=== PATIENT | male | born 1955 | race Caucasian/White ===

== ENCOUNTER → 2016-02-24 | Outpatient (CLI) | payer OTHER, MEDICARE ==
--- NOTE | 2016-02-24 12:06 | DX ---
Lateral chest x-ray 1022 hours. History: Previous open-heart surgery with increasing tenderness sternum area. (Z [id number]) Findings: Comparison to November 24, 2015. Inferior sternotomy wire appears to be intact. The superior sternotomy wires are not well delineated on the lateral view. No sternal fracture is appreciated. There is stable positioning of fine substern al/pericardial wires. Cardiac valve replacement is in stable position. There are some clips about the superior mediastinum. There are no pleural effusions identified or definite consolidation. Epidural spinal stimulator leads are noted projected over the lower thoracic spine region. Thoracolumbar spina l fusion is once again noted with pedicle screws and paraspinal rods. Cardiac rhythm recording device is projected over the anterior chest wall. Impression: No new abnormality seen on single lateral view of the chest as detailed above.
== END ==
LOC: FIMAGING 10:23
PROVIDERS: ATTEND Thoracic Surgery (Cardiothoracic Vascular Surgery)
DX: R07.81 Pleurodynia (principal); Z98.890 Other specified postprocedural states

== ENCOUNTER → 2016-04-23 | Outpatient (CLI) | payer OTHER, MEDICARE ==
[~2016-04-23] MED LIST: IOPAMIDOL (ISOVUE-M 300) 15 ML VIAL IV ONE; LIDOCAINE 1% 30 ML SDV ONE; NA BICARBONATE 50 MEQ/50 ML VIAL ONE
== END ==
LOC: FIMAGING 08:19
PROVIDERS: ATTEND Physician Assistant Surgical
PROC: 3E0R3KZ Introduction of Other Diagnostic Substance into Spinal Canal, Percutaneous Approach (ICD-10-PCS; principal; 2016-04-23)
DX: M51.35 Other intervertebral disc degeneration, thoracolumbar region (principal); M51.84 Other intervertebral disc disorders, thoracic region; M48.02 Spinal stenosis, cervical region; M50.81 Other cervical disc disorders, high cervical region; M50.322 Other cervical disc degeneration at C5-C6 level; Z95.818 Presence of other cardiac implants and grafts; Z95.4 Presence of other heart-valve replacement
CPT/HCPCS: Q9967

== ENCOUNTER 2016-06-05 05:58 | Day surgery (SDC) | payer OTHER, MEDICARE ==
[2016-06-05] MEDS ORDERED: LIDOCAINE 1% 5 ML SDV ONE (06:12)
[2016-06-05] MEDS ORDERED: SODIUM BICARBONATE 10 MEQ/10 ML SYR IVP ONE (07:01)
[2016-06-05] MEDS ORDERED: LIDOCAINE 1% 30 ML SDV ONE (07:01)
[2016-06-05] MEDS ORDERED: BUPIVACAINE 0.5% 30 ML SDV ONE (07:02)
[2016-06-05] MEDS ORDERED: LR 1,000 ML IV ONE (07:10)
[2016-06-05] MEDS ORDERED: LIDOCAINE 1% 5 ML SDV ID PRN (07:10)
[2016-06-05] MEDS ORDERED: fentaNYL 100 MCG/2 ML INJ ONE (07:19)
[2016-06-05] MEDS ORDERED: PROPOFOL 200 MG/20 ML VIAL ONE ×2 (07:22→07:23)
[2016-06-05] MEDS ORDERED: MIDAZOLAM 2 MG/2 ML VIAL ONE (07:22)
[2016-06-05] MEDS ORDERED: KETAMINE 100 MG/10 ML SYR IVP ONE (07:27)
--- NOTE | 2016-06-05 10:19 | GOP ---
[f rep st] OPERATIVE REPORT DATE OF OPERATION: 06/05/2016 SURGEON: Get Lund MD ANESTHESIA: Monitored anesthetic care. PREOPERATIVE DIAGNOSIS: Chronic pain. POSTOPERATIVE DIAGNOSIS: Chronic pain. PROCEDURE PERFORMED: Spinal stimulator generator change. FINDINGS: New generator was tested and found to be fully functional. ESTIMATED BLOOD LOSS: 20 cc. INDICATIONS: 61-year-old male with a history of spinal stimulator placement. The patient's battery has . Risks and benefits of the procedure were discussed the patient, questions were answer ed. Wished to proceed. DESCRIPTION OF PROCEDURE: Patient in the prone position. After the induction of adequate IV sedati on, the patient was prepped and draped in standard surgical fashion. 0.5% Marcaine and 1% lidocaine were injected throughout the old left flank incision for local anesthesia. Incision was opened wit h a #15 blade and carried down through the subcutaneous tissues with Bovie cautery and blunt dissect ion. The capsule was opened sharply. The generator was extracted without difficulty and the leads removed. The leads were inspected and found to be intact. A new battery was placed and tested. Jacoby wegutierrez, after multiple initial tests, the battery was found to be faulty. The leads themselves were tested by the medical field representative and found to be working. A second battery/generator was opened and the leads were attached. Testing found this new generator to be fully functional. The generator was r eplaced with the leads coiled behind it. The capsule was then sutured closed using 3-0 Vicryl in in terrupted fashion. Subcutaneous tissue was approximated similarly. The skin was closed with 4-0 Mo nocryl and a subcuticular stitch. The wound was dressed with Dermabond and the patient was returned to the supine position and taken to PACU in stable condition. COMPLICATIONS: None. DRAINS: None. /[id number]/MODL
== END 2016-06-05 09:55 | disposition home or self-care (01) ==
LOC: FSGY 05:58
PROVIDERS: ATTEND Surgery
DX: G47.33 Obstructive sleep apnea (adult) (pediatric) (principal); Z45.42 Encounter for adjustment and management of neurostimulator; G89.29 Other chronic pain; K21.9 Gastro-esophageal reflux disease without esophagitis; I10 Essential (primary) hypertension; E03.9 Hypothyroidism, unspecified; I48.91 Unspecified atrial fibrillation; Z79.01 Long term (current) use of anticoagulants; I50.32 Chronic diastolic (congestive) heart failure
CPT/HCPCS: C1787; C1820; J0690; J2250; J2704; J3010

== ENCOUNTER → 2016-12-21 | Outpatient (CLI) | payer OTHER, MEDICARE | LOC: BHFA 13:30 | PROVIDERS: ATTEND Internal Medicine Cardiovascular Disease | DX: R00.2 Palpitations (principal) ==

== ENCOUNTER 2017-04-29 11:36 | Emergency (ER) | payer OTHER, MEDICARE ==
[2017-04-29 11:47] VITALS: O2SAT 96
[2017-04-29] MEDS ORDERED: TRANEXAMIC ACID 1,000 MG/10 ML VIAL TP ONE (12:14)
--- NOTE | 2017-04-29 12:33 | EDPHY ---
H & P Smoking Status: Never smoked Time Seen by Provider: 04/29/17 12:13 HPI/ROS: CHIEF COMPLAINT: Epistaxis since last evening HISTORY OF PRESENT ILLNESS: 62-year-old male with no anticoagulant use beyond daily aspirin complaining of spontaneous epistaxis from the right side since last evening. Uses nightly home CPAP for sleep apnea. No digital trauma. No dizziness. No lightheadedness. No chest pain. No abdominal pain. No back or flank pain. No change in urinary habits. PHYSICAL EXAM (Prior to examination, patient consented to physical exam, hands were washed and my usual and customary physical exam procedures followed) 1) GENERAL: Well-developed, well-nourished, alert and oriented. Appears to be in no acute distress. 2) HEAD: Normocephalic 3) HEENT: sclera anicteric . Nasal tampon in place, taken out revealing an area of active bleeding anterior nostril on the right side. 4) LUNGS: Breathing comfortably. DIFFERENTIAL DIAGNOSIS: In no particular include but limited to anterior epistaxis, posterior epistaxis, digital trauma (Rahul Franks Diamante) Constitutional: Initial Vital Signs Heart Rate 84 04/29/17 11:40 Respiratory Rate 18 04/29/17 11:40 Blood Pressure 181/94 H 04/29/17 11:40 O2 Sat (%) 96 04/29/17 11:40 O2 Delivery Mode Room Air Allergies/Adverse Reactions: No Known Allergies Allergy (Verified 04/29/17 11:40) Home Medications: Medication Instructions Recorded Carisoprodol [Soma (*)] 350 mg PO TID PRN 11/29/11 Fluoxetine HCl [Prozac 40 mg] 40 mg PO DAILY 11/29/11 Levothyroxine [Synthroid 75 mcg 75 mcg PO DAILY06 11/29/11 (*)] Pregabalin [LYRICA] 300 mg PO BID 11/29/11 Aspirin EC [Aspirin EC 81 mg (*)] 81 mg PO HS 08/25/14 Furosemide [Lasix 40 MG (*)] 40 mg PO BID 10/31/15 fentaNYL [Fentanyl] 100 mcg TP Q3D 10/31/15 HYDROmorphone HCL [Dilaudid 4 mg 4 mg PO Q4HRS PRN #40 tab 11/13/15 (*)] Valsartan [Diovan] 80 mg PO DAILY 12/09/15 Metoprolol Tartrate [Lopressor 25 50 mg PO BID 04/20/16 mg (*)] MDM/Departure - MDM Medications Given: Discontinued Medications Tranexamic Acid (Cyklokapron) 500 mg TP EDNOW ONE Stop: 04/29/17 12:15 Last Admin: 04/29/17 12:22 Dose: 500 mg ED Course/Re-evaluation: 12:25 p.m.: Nasal pledgets soaked in TXA placed by myself. Will observe patient. 12:56 p.m.: TXA soaked pledget removed, patient is hemostatic. 1:20 p.m.: Re-evaluation, he remains hemostatic. Plan will be discharge with usual and customary epistaxis precautions and instructions. Care of patient under supervision of secondary supervising physician Dr Le . (Rahul Franks) I did not see this patient while he was in the emergency department. However his care was discussed with the PA while the patient was in the department. I agree with treatment plan and management (Baljit Le) - Depart Disposition: Home, Routine, Self-Care Clinical Impression: Anterior epistaxis Condition: Good Instructions: Nosebleed (ED) Additional Instructions: If you develop further episodes of nosebleed, place direct pressure for 20 minutes. If the bleeding continues, seek medical attention. Referrals: Jael Bess MD [Medical Doctor] - 1-2 days without fail (Dr. Bess is an ear nose and throat doctor)
[2017-04-29 13:37] VITALS: BP 152/73; PULSE 76; RESP 15; TEMP 97.5
== END 2017-04-29 13:47 | disposition home or self-care (01) ==
DX: R04.0 Epistaxis (principal); Z79.82 Long term (current) use of aspirin

== ENCOUNTER → 2017-12-11 | Outpatient (CLI) | payer OTHER, MEDICARE | LOC: BHFA 16:15 | PROVIDERS: ATTEND Internal Medicine Cardiovascular Disease | DX: Z95.2 Presence of prosthetic heart valve (principal) ==

== ENCOUNTER → 2017-12-26 | Outpatient (CLI) | payer OTHER, MEDICARE | LOC: BHFA 13:00 | PROVIDERS: ATTEND Internal Medicine Cardiovascular Disease | DX: I10 Essential (primary) hypertension (principal); Z95.2 Presence of prosthetic heart valve ==

== ENCOUNTER 2018-03-01 11:01 | Inpatient (IN) | payer OTHER, MEDICARE ==
--- NOTE | 2018-03-01 11:28 | EDPHY ---
H & P Stated Complaint: SOB cough upper chest pain x 10 days--sent from pcp Time Seen by Provider: 03/01/18 11:20 - Personal History Tetanus Vaccine Date: UNKNOWN - Medical/Surgical History Hx Asthma: No Hx Chronic Respiratory Disease: No Hx Diabetes: No Hx Cardiac Disease: Yes Hx Renal Disease: No Hx Cirrhosis: No Hx Alcoholism: No Hx HIV/AIDS: No Hx Splenectomy or Spleen Trauma: No Other PMH: HTN, chronic back pain, back fusions x 6, bilateral carpal tunnel repair, umbilical hernia repair., arthritis, LLUVIA/CSA with home O2 and cpap machine, atrial fib, hypothyroidism, Gerd, cellulitis of left arm - Social History Smoking Status: Never smoked Constitutional: Initial Vital Signs Temperature (C) 36.5 C 03/01/18 11:07 Heart Rate 76 03/01/18 11:07 Respiratory Rate 18 03/01/18 11:07 Blood Pressure 120/54 L 03/01/18 11:07 O2 Sat (%) 89 L 03/01/18 11:07 O2 Delivery Mode Room Air Allergies/Adverse Reactions: No Known Allergies Allergy (Verified 04/29/17 11:40) Home Medications: Medication Instructions Recorded Fluoxetine HCl [Prozac 40 mg] 40 mg PO DAILY 11/29/11 Levothyroxine [Synthroid 75 mcg 75 mcg PO DAILY06 11/29/11 (*)] Pregabalin [LYRICA] 300 mg PO BID 11/29/11 Aspirin EC [Aspirin EC 81 mg (*)] 81 mg PO DAILY 08/25/14 Furosemide [Lasix 40 MG (*)] 80 mg PO BIDDIUR MDD 80-160 DAILY 10/31/15 Metoprolol Tartrate [Lopressor 25 50 mg PO BID 04/20/16 mg (*)] Acet/Caffeine/Buta Fioricet 03/01/18 [Fioricet (*)] Irbesartan [Avapro 150 mg (*)] 300 mg PO DAILY 03/01/18 Linaclotide [Linzess] 1 cap PO DAILY 03/01/18 Potassium Chloride [Potassium 20 meq PO BIDDIUR 03/01/18 Chloride] Medical Decision Making - Diagnostics Imaging: I viewed and interpreted images myself ED Course/Re-evaluation: CHIEF COMPLAINT: Cough, malaise HISTORY OF PRESENT ILLNESS: The patient is a 62 y/o male with a history of atrial fibrillation, hypertension, and chronic pain complaining of persistent cough and malaise unimproved over the last few weeks. His cough is occasionally productive and he's had associated chills and night sweats. He feels extremely fatigued and describes feeling like he is "running low." He went to his PCP's office today for evaluation. His PCP described the patient as diaphoretic and ill-appearing and sent him to the ED with concern for pneumonia. He did receive a flu vaccination this season. He denies vomiting, abdominal pain, diarrhea, urinary symptoms. REVIEW OF SYSTEMS: A comprehensive 10 system review of systems is otherwise negative aside from elements mentioned in the history of present illness and medical decision making. PHYSICAL EXAM: HR, BP, O2 Sat, RR. Temp noted. SpO2 89% on room air. General Appearance: Alert, well hydrated, appropriate, diaphoretic and ill- appearing. Head: Atraumatic without scalp tenderness or obvious injury Eyes: Pupils equal, round, reactive to light and accommodation, EOMI, no trauma , no injection. Ears: Clear bilaterally, no perforation, normal landmarks Nose: Atraumatic, no rhinorrhea, clear. Throat: There is no erythema or exudates, no lesions, normal tonsils, mucus membranes moist. Neck: Supple, non-tender, no lymphadenopathy. Respiratory: No retractions, no distress, no wheezes, and no accessory muscle use. Lungs have rhonchi at the bases to auscultation bilaterally. Cardiovascular: Regular rate and rhythm, no murmurs, rubs, or gallops. Good capillary refill all extremities. Gastrointestinal: Abdomen is soft, non-tender, non-distended, no masses, no rebound, no guarding, no peritoneal signs. Obese abdomen. Musculoskeletal: Normal active ROM of all extremities, atraumatic. Neurological: Alert, appropriate, and interactive. The patient has non-focal cranial nerves, motor, sensory, and cerebellar exam. Skin: No rashes, good turgor, no nodules on palpation. PAST MEDICAL HISTORY: Hypertension, chronic back pain, arthritis, obstructive sleep apnea with home O2 and CPAP, atrial fib, hypothyroidism, GERD, cellulitis of left arm PAST SURGICAL HISTORY: MAZE procedure, back fusions x6, bilateral carpal tunnel repair, umbilical hernia repair. SOCIAL HISTORY: Lives in [place]. Retired. PCP: Dr. Canales. DIAGNOSTICS/PROCEDURES/CRITICAL CARE TIME: Chest x-ray: bibasilar pneumonia DIFFERENTIAL DIAGNOSIS: The differential diagnosis for the patient's shortness of breath and hypoxemia included but was not limited to pneumonia, myocardial infarction, acute mountain sickness, high altitude pulmonary edema, congestive heart failure, and pulmonary embolus. MEDICAL DECISION MAKIN62 y/o male presents with a couple week history of progressive cough and malaise. He is ill-appearing and hypoxemic on room air at 89%. He has rhonchi bilaterally at the bases on auscultation. Presentation is concerning for pneumonia, but he does not appear septic and is normotensive and not tachycardic. Plan for IV, labs, chest x-ray. WBC elevated, but he does not meet sepsis criteria. He has renal insufficiency with a creatinine of 1.8, which is higher than prior labs in our records. Chest x-ray shows bibasilar pneumonia. 1gm IV ceftriaxone and 500mg IV azithromycin ordered. Reassessed patient and discussed findings. Plan for admission. Spoke with hospitalist service. Dr. Manriquez accepts admission. - Data Points Laboratory Results: Laboratory Results 03/01/18 11:20 03/01/18 11:20 03/01/18 03/01/18 03/01/18 11:30 11:22 11:20 WBC RBC Hgb Hct MCV MCH MCHC RDW Plt Count MPV Neut % (Auto) Lymph % (Auto) [place] % (Auto) Eos % (Auto) Baso % (Auto) Nucleat RBC Rel Count Absolute Neuts (auto) Absolute Lymphs (auto) Absolute Monos (auto) Absolute Eos (auto) Absolute Basos (auto) Absolute Nucleated RBC Immature Gran % Immature Gran # Platelet Estimate PT INR APTT VBG Lactic Acid 2.4 mmol/L H mmol/L (0.7-2.1) Sodium 139 mEq/L mEq/L (135-145) Potassium 3.5 mEq/L mEq/L (3.5-5.2) Chloride 101 mEq/L mEq/L (97-110) Carbon Dioxide 24 mEq/l mEq/l (22-31) Anion Gap 14 mEq/L mEq/L (6-14) BUN 25 mg/dL H mg/dL (7-23) Creatinine 1.8 mg/dL H mg/dL (0.7-1.3) Estimated GFR 38 Glucose 128 mg/dL H mg/dL (70-100) Calcium 9.2 mg/dL mg/dL (8.5-10.4) Total Bilirubin 1.5 mg/dL H mg/dL (0.1-1.4) POC Troponin I 0.01 ng/mL ng/mL (0.00-0.08) 03/01/18 03/01/18 11:20 11:20 WBC 13.78 10^3/uL H 10^3/uL (3.80-9.50) RBC 5.36 10^6/uL 10^6/uL (4.40-6.38) Hgb 16.3 g/dL g/dL (13.7-17.5) Hct 49.4 % % (40.0-51.0) MCV 92.2 fL fL (81.5-99.8) MCH 30.4 pg pg (27.9-34.1) MCHC 33.0 g/dL g/dL (32.4-36.7) RDW 14.3 % % (11.5-15.2) Plt Count 202 10^3/uL 10^3/uL (150-400) MPV 11.3 fL fL (8.7-11.7) Neut % (Auto) Pending Lymph % (Auto) Pending [place] % (Auto) Pending Eos % (Auto) Pending Baso % (Auto) Pending Nucleat RBC Rel Count Pending Absolute Neuts (auto) Pending Absolute Lymphs (auto) Pending Absolute Monos (auto) Pending Absolute Eos (auto) Pending Absolute Basos (auto) Pending Absolute Nucleated RBC Pending Immature Gran % Pending Immature Gran # Pending Platelet Estimate Pending PT 16.7 SEC H SEC (12.0-15.0) INR 1.33 H (0.83-1.16) APTT 28.6 SEC SEC (23.0-38.0) VBG Lactic Acid Sodium Potassium Chloride Carbon Dioxide Anion Gap BUN Creatinine Estimated GFR Glucose Calcium Total Bilirubin POC Troponin I Point of Care Test Results: Chemistry 03/01/18 11:22 POC Troponin I 0.01 ng/mL ng/mL (0.00-0.08) Departure - Departure Disposition: [facility] Clinical Impression: Hypoxemia, Renal insufficiency Pneumonia Qualifiers: Pneumonia type: due to unspecified organism Laterality: bilateral Lung location : lower lobe of lung Qualified Code(s): J18.1 - Lobar pneumonia, unspecified organism Condition: Fair Referrals: Frederick Canales MD [Primary Care Provider] - As per Instructions Report Scribed for: Magdiel Mata Report Scribed by: Dee Sotelo Date of Report: 03/01/18 Time of Report: 11:54
[2018-03-01 11:38] LABS: PLATELET COUNT 202 10^3/uL (150-400)
[2018-03-01 11:46] LABS: INR 1.33 (0.83-1.16); PROTIME(PATIENT) 16.7 SEC (12.0-15.0)
[2018-03-01] MEDS ORDERED: AZITHROMYCIN IV 500 MG in NS 250 ML IV ONE (11:54)
[2018-03-01] MEDS ORDERED: HYDROCODONE/APAP 5/325 TAB PO PRN (12:27)
[2018-03-01] MEDS ORDERED: LORazepam 0.5 MG TAB PO PRN (12:27)
[2018-03-01] MEDS ORDERED: ACETAMINOPHEN 325 MG TAB PO PRN (12:27)
[2018-03-01] MEDS ORDERED: BENZONATATE 100 MG CAP PO PRN (14:45)
--- NOTE | 2018-03-01 15:04 | CPEKG ---
Test Reason : OPEN Blood Pressure : / mmHG Vent. Rate : 076 BPM Atrial Rate : 077 BPM P-R Int : 144 ms QRS Dur : 099 ms QT Int : 409 ms P-R-T Axes : 117 084 084 degrees QTc Int : 460 ms Sinus rhythm Consider right ventricular hypertrophy Nonspecific T abnormalities, lateral leads ST elevation, consider inferior injury Confirmed by Magdiel Mata ([id number]) on 03/01/2018 3:04:46 PM Referred By: Confirmed By:Magdiel Mata
[2018-03-01] MEDS: HEPARIN 5,000 UNIT/0.5 ML INJ SC SCH ×2 (15:24→22:39)
[2018-03-01] MEDS: NS 1,000 ML IV SCH (15:29)
[2018-03-01] MEDS: IPRATROPIUM/ALBUTEROL 3 ML DEYVIAL IH SCH ×2 (16:24→21:17)
[2018-03-01] MEDS ORDERED: ACET/CAFFEINE/BUTA FIORICET 1 EACH TAB PO PRN (17:05)
[2018-03-01] MEDS ORDERED: HYDROmorphONE/DILAUDID 4 MG TAB PO PRN (17:05)
[2018-03-01] MEDS ORDERED: LIDOCAINE 4%/MENTHOL 1% PATCH TD PRN (17:15)
--- NOTE | 2018-03-01 17:27 | GHP ---
DATE OF ADMISSION: 03/01/2018 CHIEF COMPLAINT: Cough and poor appetite. HISTORY OF PRESENT ILLNESS: The patient is a pleasant 62-year-old gentleman with past medical history of atrial fibrillation and hypertension, who presented to the [facility] Emergency Room after 2 weeks of productive cough and low oral intake over the prior days. Patient was found to be slightly hypoxic with oxygen saturations in the upper 80s when he arrived and was placed on oxygen. Chest imaging revealed peribronchial thickening, and respiratory PCR was positive for respiratory syncytial virus. His blood work was notable for an elevated creatinine of 1.8, which was recently documented within normal limits at 1.1 in December of 2017. Considering the above-listed findings, he is admitted for further evaluation and treatment. The patient states he has not been eating or drinking very well over the prior days since he has not been feeling very well. PAST MEDICAL HISTORY: Atrial fibrillation, history of severe mitral valve regurgitation status post mitral valve repair, hypertension, hypothyroidism. PAST SURGICAL HISTORY: History of multiple spinal fusions, maze procedure. MEDICATIONS: (This is an unconfirmed medication list): Aspirin 81 mg daily, Prozac 40 mg daily, Lasix 80 mg twice a day, Avapro 300 mg daily, Synthroid 75 mg daily, Linzess 145 mcg daily, metoprolol 50 mg twice a day, potassium chloride 20 mEq twice a day, and Lyrica 300 mg twice a day. ALLERGIES: No known drug allergies. FAMILY HISTORY: Mother and father are both . Mother from leukemia and father from heart disease related complications. SOCIAL HISTORY: Patient is currently . He has no children. He is a nonsmoker. No significant alcohol use. REVIEW OF SYSTEMS: CONSTITUTIONAL: No complaints of any fevers or chills, but generalized malaise is positive. ENT: No nasal congestion or sinus pain. CARDIOVASCULAR: No complaints of any chest pains, palpitations, or syncopal episodes. RESPIRATORY: Positive for productive cough and shortness of breath. GI: No nausea, vomiting, diarrhea, constipation. : No reports of any difficulty with urination. NEUROLOGIC: No complaints of any headaches or focal weakness. HEMATOLOGIC: No history of any deep vein thrombosis or pulmonary embolism. PSYCHIATRIC: Patient is on SSRI therapy. ENDOCRINE: No history of polyuria or complaints of polyuria. SKIN: No new skin rashes. MUSCULOSKELETAL: No focal joint pains. PHYSICAL EXAM: VITAL SIGNS: Temperature 36.5, blood pressure 120/54, heart rate 76, respirations 18, saturating 89% on room air upon arrival. GENERAL: The patient appears comfortable. He is somewhat hard of hearing. Sitting in chair at the bedside. Nontoxic-appearing. HEENT: Extraocular movements appear intact. No scleral icterus is noted. NECK: Supple. No thyroid enlargement or adenopathy appreciated. CHEST: Notable crackles in both lungs hernandez with mild associated wheezing. Productive cough is also appreciated. Breath sounds auscultated throughout with no dullness to percussion. HEART: Irregular. No significant murmur appreciated. ABDOMEN: Soft, nontender, nondistended. : No Buck catheter in place. EXTREMITIES: No significant pitting edema or calf pain with palpation. NEUROLOGIC: Cranial nerves 2-12 appear intact with 5/5 strength in extremities. LABORATORY DATA: White blood cell count 13, hemoglobin 16, platelets 202. Sodium 139, potassium 3.5, chloride 101, bicarb 24, BUN 25, creatinine 1.8, glucose of 128, INR 1.3, bilirubin 1.5. RSV positive. IMAGING: Chest x-ray with stable cardiomegaly with peribronchial thickening that could be related to bronchitis or mild fluid overload. ASSESSMENT/PLAN: 1. Acute hypoxic respiratory failure. The patient appears to be having reactive airway secondary to RSV. I recommend scheduled DuoNeb nebulizers overnight along with Solu-Medrol 40 mg IV q.6 hours. If improved overnight, could transition to oral prednisone tomorrow. 2. Pneumonia - possibly with secondary bacterial pneumonia, so we will check a procalcitonin value with his labs tomorrow morning. If low, we could consider stopping antibiotic therapy considering the positive RSV PCR testing done. 3. Acute kidney injury likely hypovolemic secondary to low oral intake over the prior days. IV fluids and reassess tomorrow. 4. Atrial fibrillation. I do not see that patient is currently on anticoagulation, but we need to still confirm his home medications. He does appear to be on metoprolol for rate control. 5. Hypertension. We will plan on continuing his outpatient antihypertensive regimen. 6. Hypothyroidism. We will continue with current levothyroxine. 7. Deep vein thrombosis prophylaxis. Heparin. DISPOSITION: Considering the acute kidney injury, anticipate he will probably need 2 to 3 days here in the hospital for IV fluids, so I will admit him under inpatient status. /[id number]/MODL and [id number]/MODL [facility]
[2018-03-01] MEDS: methylPREDNISolone SOD SUCC 40 MG/ML VIAL IVP SCH ×2 (17:50→22:44)
--- NOTE | 2018-03-01 20:24 | PDMN ---
Medical Necessity Medical necessity: Pt meets INPT criteria per MD as of 03/01/18 and MCG [id number] Pneumonia, Community Acquired (est. LOS >2 MN for eval/tx of acute hypoxic respiratory failure, reactive airway 2/2 RSV, possibly with secondary bacterial pneumonia, [place]; comorbid afib, htn).
[2018-03-01] MEDS: CARISOPRODOL 350 MG TAB PO SCH (20:45)
[2018-03-01] MEDS: PREGABALIN 150 MG CAP PO SCH (20:46)
[2018-03-01] MEDS: METOPROLOL TARTRATE 25 MG TAB PO SCH (20:46)
[2018-03-01] MEDS ORDERED: PATCH REMOVAL 1 EA PATCH TD SCH (21:00)
[2018-03-01] MEDS ORDERED: CHLORPHENIRAMINE MALEATE 4 MG TAB PO SCH (21:00)
[2018-03-02] MEDS: NS 1,000 ML IV SCH ×2 (00:43→08:20)
[2018-03-02] MEDS: CARISOPRODOL 350 MG TAB PO SCH (02:24)
[2018-03-02] MEDS: IPRATROPIUM/ALBUTEROL 3 ML DEYVIAL IH SCH ×2 (05:41→11:58)
[2018-03-02] MEDS: HEPARIN 5,000 UNIT/0.5 ML INJ SC SCH ×2 (05:43→14:04)
[2018-03-02] MEDS: methylPREDNISolone SOD SUCC 40 MG/ML VIAL IVP SCH ×2 (05:43→11:47)
[2018-03-02] MEDS ORDERED: LEVOTHYROXINE 75 MCG TAB PO SCH (06:00)
[2018-03-02 06:21] LABS: PLATELET COUNT 150 10^3/uL (150-400)
[2018-03-02] MEDS: METOPROLOL TARTRATE 25 MG TAB PO SCH (08:21)
[2018-03-02] MEDS: PREGABALIN 150 MG CAP PO SCH (08:21)
[2018-03-02] MEDS ORDERED: IRBESARTAN 150 MG TAB PO SCH (09:00)
[2018-03-02] MEDS ORDERED: POTASSIUM CL 20 MEQ TAB PO SCH (09:00)
[2018-03-02] MEDS ORDERED: Linaclotide [Linzess] PO SCH (09:00)
[2018-03-02] MEDS ORDERED: ASPIRIN EC 81 MG TAB PO SCH (09:00)
[2018-03-02] MEDS ORDERED: AZITHROMYCIN IV 500 MG in NS 250 ML IV SCH (09:00)
[2018-03-02] MEDS ORDERED: FLUoxetine 20 MG CAP PO SCH (09:00)
--- NOTE | 2018-03-02 10:13 | ASMTCMCOM ---
CM Note CM Note Notes: Case Management Chart Review for Discharge Support: Patient is a 62 y/o male who presented to [facility] ED for persistent cough and malaise, referred by PCP for possible pneumonia. Past medical history includes atrial fibrillation, hypertension, and chronic back pain, arthritis, obstructive sleep apnea with home O2 and CPAP, hypothyroidism, GERD, cellulitis of left arm. Patient is . Patient likely to be here for 2-3 days for IV fluids. Transitional Care consult ordered. Patient likely to discharge independently when medically stable. CM to follow. D/C Plan: Independent. Date Signed: 03/02/2018 10:13 AM Electronically Signed By:Akanksha Thayer
[2018-03-02 11:56] VITALS: BP 130/64
--- NOTE | 2018-03-02 14:27 | ASMTDCNOTE ---
Case Management Discharge Discharge Order Complete? Answers: Yes Patient to Obtain Answers: Independently Medications Discharge Comments Notes: Patient received discharge orders, CM met with patient, he will be driving himself home. He shared his works down the street at the [employer] and she will walk to meet him and they will drive home together. Patient has oxygen at home and states he will follow up within a week with PCP. CM available to address any additional CM needs. Date Signed: 03/02/2018 02:27 PM Electronically Signed By:Akanksha Thayer
--- NOTE | 2018-03-03 03:23 | GDS ---
DISCHARGE DIAGNOSES: 1. Respiratory syncytial virus. 2. Acute hypoxic respiratory failure. HISTORY OF PRESENT ILLNESS: The patient is a pleasant 62-year-old gentleman with past medical histor y of atrial fibrillation and hypertension, who presented to [facility] emergency room on 03/01/2018, after having 2 weeks of productive cough and poor intake over the prior days. He was found to be slightly hypoxic, and his creatinine was elevated at 1.8. Chest imaging showed peribron chial thickening, and patient tested positive for RSV. On physical exam, he had significant wheezing and crackles bilaterally. He was started on Solu-Medrol as well as scheduled nebulizers and empiric ally started on antibiotic therapy as well. Fortunately, he did quite well coming off oxygen the day after admission, and his creatinine normalized as well overnight with IV fluids. We debated about k eeping him another night for further observation; however, considering the fact that he was not needi ng oxygen and that his creatinine had normalized with IV fluids, it was felt that we could discharge him home to complete 4 more days of steroids and azithromycin to cover for the potential for secondar y bacterial pneumonia. HOSPITAL COURSE BY PROBLEM: Acute hypoxic respiratory failure: Resolved. Patient was weaned down t o room air today. I recommend to continue 4 more days of prednisone considering that he still has wh eezing on exam today, although it is much milder as compared to yesterday's exam. RSV: Patient did have a mildly elevated procalcitonin value in the hospital, so may have some compon ent of secondary bacterial infection. I recommend that he continue with azithromycin for 4 additiona l days, which would complete a full 5-day course of treatment. Acute kidney injury: Likely secondary to hypovolemia. Resolved with normal creatinine today. Atrial fibrillation: The patient is on metoprolol for rate control. I do not see that he is anticoa gulated. Hypertension: Controlled during this hospitalization. No changes made. Hypothyroidism: Patient was continued on levothyroxine. DVT prophylaxis: Patient was on heparin during this hospitalization. DISPOSITION: Patient appears stable for discharge home today. PHYSICAL EXAM: VITAL SIGNS: Temperature 36.5, blood pressure 130/64, heart rate 76, respirations 16 , satting 98% on room air. GENERAL: Patient appears comfortable sitting in chair at the bedside. A wake, alert, conversant. No acute distress. Nontoxic appearing. HEART: Irregular. LUNGS: Normal respiratory effort. Slight wheezing and crackles throughout all lung hernandez. ABDOMEN: Soft, nonte nder, nondistended. : No Buck catheter in place. EXTREMITIES: No significant pitting edema. NOTABLE STUDIES: Respiratory PCR positive for RSV. Blood cultures negative to date. Chest x-ray: Stable cardiomegaly with peribronchial thickening that could be related to bronchitis or mild fluid o verload. Creatinine 1.8 on admission, repeat was 1.0. Procalcitonin 0.46. White blood cell count i nitially 13, repeat 7.5. Lactic acid 2.4, and 1.5 on repeat. DISCHARGE MEDICATIONS: Albuterol inhaler every 4 hours as needed, aspirin 81 mg daily, azithromycin 250 mg daily for 4 additional days to be started on 03/02/18, Soma 350 mg twice a day, chlorphenirami ne 12 mg nightly, fentanyl patch 100 mcg every 72 hours, Prozac 40 mg daily, Lasix 80 mg daily, Dilau did 4 mg every 6 hours as needed, Avapro 300 mg daily, levothyroxine 75 mcg daily, Lidoderm patch, Li nzess 1 capsule daily, metoprolol 50 mg twice a day, potassium supplementation, prednisone 40 mg juanito y to be taken for 4 additional days starting 03/02/18, Lyrica 300 mg twice a day. DISCHARGE INSTRUCTIONS: I have recommended a followup visit with his primary care provider, Dr. Frederick Canales, in 1-2 weeks' time for reassessment after completing antibiotics and steroids. 35 minutes of time dedicated to discharge efforts. /[id number]/MODL
[2018-03-03] MEDS ORDERED: fentaNYL 100 MCG PATCH TD SCH (09:00)
--- NOTE | 2018-03-04 10:58 | CPEKG ---
Test Reason : OPEN Blood Pressure : / mmHG Vent. Rate : 081 BPM Atrial Rate : 079 BPM P-R Int : 157 ms QRS Dur : 170 ms QT Int : 413 ms P-R-T Axes : 000 060 202 degrees QTc Int : 480 ms Sinus rhythm Atrial premature complex IVCD, consider atypical RBBB Repol abnrm, severe global ischemia (LM/MVD) Confirmed by Sp Alejandro ([id number]) on 03/04/2018 10:58:16 AM Referred By: Confirmed By:Sp Alejandro
== END 2018-03-02 16:01 | disposition home or self-care (01) | DRG 682 ==
LOC: OBSVTOIN 12:04 → F3E 13:34
PROVIDERS: ADMIT Internal Medicine; ATTEND Internal Medicine
DX: N17.9 Acute kidney failure, unspecified (principal); J96.01 Acute respiratory failure with hypoxia; J15.9 Unspecified bacterial pneumonia; B97.4 Respiratory syncytial virus as the cause of diseases classified elsewhere; E86.1 Hypovolemia; I48.91 Unspecified atrial fibrillation; I10 Essential (primary) hypertension; E03.9 Hypothyroidism, unspecified; G47.33 Obstructive sleep apnea (adult) (pediatric)
CPT/HCPCS: 84484-ER; 87449-90; 96365; J0456; J0696; J1644; J2920